=== PATIENT | female | born 2000 | race Caucasian/White ===

== ENCOUNTER 2023-08-14 17:47 | Outpatient (CLI) ==
[~2023-08-14] VITALS: Ht 162.6 cm; Wt 66.3 kg
[2023-08-14 18:07] VITALS: BP 118/80
[2023-08-14 19:16] LABS: APPEARANCE, URINE HAZY (CLEAR); BACTERIA, URINE AUTO NEGATIVE (NEGATIVE); BILIRUBIN, URINE AUTO NEGATIVE (NEGATIVE); BLOOD, URINE BLOOD NEGATIVE (NEGATIVE); COLOR, URINE YELLOW (YELLOW); GLUCOSE, URINE (UA) AUTO NEGATIVE (NEGATIVE); KETONE, URINE AUTO NEGATIVE (NEGATIVE); LEUKOCYTE ESTERASE, URINE AUTO 3+ (NEGATIVE); MUCUS, URINE SMALL (NEGATIVE); NITRITE, URINE AUTO NEGATIVE (NEGATIVE); PROTEIN, URINE AUTO 2+ mg/dL (NEGATIVE); RBC, URINE AUTO 26 /HPF (0-3); SPECIFIC GRAVITY URINE AUTO 1.015 (1.002-1.035); SQUAMOUS EPITHELIAL CELL UR AU 0 /HPF (0-6); UROBILINOGEN, URINE AUTO 0.2 mg/dL (0.0-2.0); WBC, URINE AUTO 174 /HPF (0-3)
[2023-08-14] MEDS ORDERED: MACR100C43 PO (19:25)
[2023-08-14] MEDS ORDERED: NITROFURANTOIN (MACROBID) 100 MG CAP PO ONE (20:00)
== END 2023-08-14 19:45 | disposition home or self-care (01) ==
LOC: M LDO 17:47
PROVIDERS: ATTEND Specialist
DX: O23.42 Unspecified infection of urinary tract in pregnancy, second trimester (principal); Z3A.21 21 weeks gestation of pregnancy
CPT/HCPCS: 59025; 76815; 81001; 87088; 87186; G0463

== ENCOUNTER 2023-10-21 08:08 | Inpatient (IN) | payer OTHER ==
[~2023-10-21] VITALS: Ht 162.6 cm; Wt 77.2 kg
[~2023-10-21 08:08] MED LIST: MACR100C43 PO
[2023-10-21] MEDS ORDERED: LABETALOL 100MG/20ML VIAL As Ordered ONE (08:26)
[2023-10-21] MEDS: MAGNESIUM *L&D* 4GM/100ML BAG (40MG/ML) IV ONE (08:36)
[2023-10-21] MEDS: LABETALOL 100MG/20ML VIAL IV STA (08:37)
[2023-10-21] MEDS ORDERED: MAGNESIUM SULFATE 4% INJ 20GM/500ML (40MG/ML) As Ordered ONE (08:45)
[2023-10-21] MEDS ORDERED: LIDOCAINE 1% MDV 20ML VIAL INFIL PRN (08:45)
[2023-10-21] MEDS ORDERED: OXYTOCIN DRIP 30 UNITS in IV 1 EA IV PRN (08:45)
[2023-10-21] MEDS ORDERED: CARBOPROST TROMETHAMINE 250 MCG/ML AMP IM PRN (08:45)
[2023-10-21] MEDS ORDERED: TRANEXAMIC ACID INJection 1,000 MG in NS 100 ML IV PRN (08:45)
[2023-10-21] MEDS: MAG Sulf (OBGYN) 20GM/500ML 20,000 MG in IV 1 EA IV SCH (09:01)
[2023-10-21 09:04] LABS: HEMATOCRIT 34.6 % (36.0-47.0); HEMOGLOBIN 10.8 g/dl (12.0-15.5); MEAN CORPUSCULAR HEMOGLOBIN 27.4 pg (27.0-33.0); MEAN CORPUSCULAR HGB CONC 31.2 g/dl (32.0-36.5); MEAN CORPUSCULAR VOLUME 87.8 fl (80.0-96.0); PLATELET COUNT, AUTOMATED 107 10^3/uL (150-450); RED BLOOD COUNT 3.94 10^6/uL (4.00-5.40); WHITE BLOOD COUNT 17.4 10^3/uL (4.0-10.0)
[2023-10-21 09:13] LABS: LDH LACTATE DEHYDROGENASE 582 U/L (120-246)
[2023-10-21 09:14] LABS: ALT/SGPT 55 U/L (7.0-40); AST/SGOT 95 U/L (<34); BILIRUBIN,TOTAL 0.3 MG/DL (0.3-1.2); CREATININE FOR GFR 0.86 MG/DL (0.55-1.30); GLOMERULAR FILTRATION RATE > 60.0 (>60)
[2023-10-21] MEDS ORDERED: ONDANSETRON 4MG 2ML VIAL As Ordered ONE (09:21)
[2023-10-21] MEDS ORDERED: ePHEDrine SULFATE 25 MG/5 ML(5MG/ML) SYRINGE As Ordered ONE (09:21)
[2023-10-21] MEDS ORDERED: MORPHINE PRES-FREE INJ 10 MG/10 ML VIAL As Ordered ONE (09:21)
[2023-10-21] MEDS: ceFAZolin SOD 2 GM in IV 1 EA IV ONE (09:24)
[2023-10-21] MEDS: BICITRA 30ML SOLN UDC PO ONE (09:24)
[2023-10-21] MEDS: ONDANSETRON 4MG 2ML VIAL IV ONE (09:36)
[2023-10-21 09:45] LABS: URIC ACID 10.2 MG/DL (3.1-7.8)
[2023-10-21 10:07] LABS: INR 0.98; PARTIAL THROMBOPLASTIN TIME 27.2 SECONDS (24.8-34.2); PROTHROMBIN TIME 12.7 SECONDS (12.5-14.5)
[2023-10-21 10:17] LABS: CORD GAS ABE V -4.9; CORD GAS HCO3 V 22.2 MMOL/L; CORD GAS PCO2 V 48.8 mmHg; CORD GAS PH V 7.276 UNITS; CORD GAS PO2 V 19.3 mmHg; CORD GAS SBC V 19.2 MMOL/L; CORD GAS TCO2 V 23.7 MMOL/L
[2023-10-21 10:18] LABS: CORD GAS ABE A -5.8; CORD GAS HCO3 A 22.2 MMOL/L; CORD GAS O2 SAT A 31.7 %; CORD GAS PCO2 A 52.9 mmHg; CORD GAS PH A 7.24 UNITS; CORD GAS PO2 A 15.4 mmHg; CORD GAS SBC A 18.3 MMOL/L; CORD GAS TCO2 A 23.8 MMOL/L
[2023-10-21] MEDS ORDERED: HYDROMORPHONE HCL 0.5 MG/ 0.5 ML SYRINGE IV PRN (10:30)
[2023-10-21] MEDS ORDERED: MEPERIDINE 25 MG/ML 1ML VIAL IV PRN (10:30)
[2023-10-21] MEDS ORDERED: NALOXONE INJ 0.4MG/1ML VIAL IV PRN ×2 (10:30)
[2023-10-21] MEDS ORDERED: **NOTE PATIENT COMMENT** MISC XX SCH (10:30)
[2023-10-21] MEDS: SLF 3 ML SYR IV SCH (10:30)
[2023-10-21] MEDS ORDERED: diphenhydrAMINE 50MG/ML VIAL IV PRN (10:30)
[2023-10-21] MEDS ORDERED: ONDANSETRON 4MG 2ML VIAL IV PRN ×2 (10:30→10:50)
[2023-10-21] MEDS ORDERED: METOCLOPRAMIDE INJ 10MG/2ML VIAL IV PRN (10:30)
[2023-10-21] MEDS ORDERED: oxyCODONE 5MG TAB PO PRN (10:30)
[2023-10-21] MEDS ORDERED: SIMETHICONE 80MG CHEW TAB PO PRN (10:50)
[2023-10-21] MEDS ORDERED: MOM 30ML SUSPENSION UDC PO PRN (10:50)
[2023-10-21] MEDS ORDERED: RHOGAM 300MCG (1500IU) INJ IM SCH (10:50)
[2023-10-21] MEDS ORDERED: OXYTOCIN DRIP 30 UNITS in IV 1 EA IV SCH (10:55)
[2023-10-21] MEDS ORDERED: fentaNYL 100 MCG/2 ML INJECTION As Ordered ONE (10:55)
[2023-10-21] MEDS: fentaNYL 100 MCG/2 ML INJECTION IV PRN (10:58)
[2023-10-21] MEDS ORDERED: KETOROLAC 30 MG/ML 1ML VIAL As Ordered ONE (11:07)
[2023-10-21] MEDS: KETOROLAC 30 MG/ML 1ML VIAL IV SCH ×2 (11:09→19:23)
[2023-10-21] MEDS: OXYTOCIN DRIP 30 UNITS in IV 1 EA IV SCH (11:10)
[2023-10-21] MEDS: LR 1,000 ML IV SCH (12:00)
[2023-10-21] MEDS ORDERED: VITA100T59 PO (12:04)
[2023-10-21] MEDS ORDERED: PRENTAB9 PO (12:04)
[2023-10-21] MEDS ORDERED: FERR325T3 PO (12:04)
[2023-10-21] MEDS ORDERED: TUMS500C PO (12:04)
[2023-10-21] MEDS ORDERED: NOXI1TAB PO (12:06)
[2023-10-21] MEDS ORDERED: FOLI400T13 PO (12:06)
[2023-10-21] MEDS ORDERED: HOME MED LIST COMPLETE! XX SCH (12:10)
[2023-10-21 13:59] LABS: HEMATOCRIT 27.1 % (36.0-47.0); HEMOGLOBIN 8.9 g/dl (12.0-15.5); MEAN CORPUSCULAR HEMOGLOBIN 28.3 pg (27.0-33.0); MEAN CORPUSCULAR HGB CONC 32.8 g/dl (32.0-36.5); MEAN CORPUSCULAR VOLUME 86.3 fl (80.0-96.0); RED BLOOD COUNT 3.14 10^6/uL (4.00-5.40); WHITE BLOOD COUNT 16.2 10^3/uL (4.0-10.0)
[2023-10-21 14:13] LABS: INR 1.03; PARTIAL THROMBOPLASTIN TIME 29.4 SECONDS (24.8-34.2); PROTHROMBIN TIME 13.2 SECONDS (12.5-14.5)
[2023-10-21 14:15] LABS: LDH LACTATE DEHYDROGENASE 463 U/L (120-246)
[2023-10-21 14:16] LABS: ALT/SGPT 42 U/L (7.0-40); AST/SGOT 66 U/L (<34); BILIRUBIN,TOTAL 0.3 MG/DL (0.3-1.2); CREATININE FOR GFR 0.65 MG/DL (0.55-1.30); GLOMERULAR FILTRATION RATE > 60.0 (>60)
[2023-10-21 14:24] LABS: PLATELET COUNT, AUTOMATED 87 10^3/uL (150-450)
[2023-10-21 19:21] VITALS: BP 127/77
[2023-10-21 20:21] VITALS: BP 122/86
[2023-10-21 20:22] LABS: HEMATOCRIT 22.5 % (36.0-47.0); HEMOGLOBIN 7.3 g/dl (12.0-15.5); MEAN CORPUSCULAR HEMOGLOBIN 28.2 pg (27.0-33.0); MEAN CORPUSCULAR HGB CONC 32.4 g/dl (32.0-36.5); MEAN CORPUSCULAR VOLUME 86.9 fl (80.0-96.0); RED BLOOD COUNT 2.59 10^6/uL (4.00-5.40); WHITE BLOOD COUNT 12.1 10^3/uL (4.0-10.0)
[2023-10-21 20:23] LABS: PLATELET COUNT, AUTOMATED 83 10^3/uL (150-450)
[2023-10-21 20:35] LABS: INR 1.09; PARTIAL THROMBOPLASTIN TIME 29.1 SECONDS (24.8-34.2); PROTHROMBIN TIME 13.8 SECONDS (12.5-14.5)
[2023-10-21 20:45] LABS: URIC ACID 8.8 MG/DL (3.1-7.8)
[2023-10-21 20:48] LABS: ALT/SGPT 33 U/L (7.0-40); AST/SGOT 45 U/L (<34); BILIRUBIN,TOTAL 0.2 MG/DL (0.3-1.2); CREATININE FOR GFR 0.69 MG/DL (0.55-1.30); GLOMERULAR FILTRATION RATE > 60.0 (>60); LDH LACTATE DEHYDROGENASE 359 U/L (120-246)
[2023-10-21] MEDS: DOCUSATE SODIUM 100MG CAPSULE PO SCH (21:00)
[2023-10-21 21:21] VITALS: BP 123/80
[2023-10-21 22:21] VITALS: BP 121/79
[2023-10-21 23:21] VITALS: BP 116/76
[2023-10-22] VITALS (28 sets, daily range): BP systolic 94–153; BP diastolic 55–110; TEMP 97.4–97.6; O2SAT 95–98
[2023-10-22 04:42] LABS: MEAN CORPUSCULAR HEMOGLOBIN 27.4 pg (27.0-33.0); MEAN CORPUSCULAR HGB CONC 31.4 g/dl (32.0-36.5); MEAN CORPUSCULAR VOLUME 87.1 fl (80.0-96.0); RED BLOOD COUNT 2.41 10^6/uL (4.00-5.40); WHITE BLOOD COUNT 9.8 10^3/uL (4.0-10.0)
[2023-10-22 04:47] LABS: PLATELET COUNT, AUTOMATED 98 10^3/uL (150-450)
[2023-10-22 04:48] LABS: HEMOGLOBIN 6.6 g/dl (12.0-15.5)
[2023-10-22 04:54] LABS: INR 1.02; PARTIAL THROMBOPLASTIN TIME 30.5 SECONDS (24.8-34.2); PROTHROMBIN TIME 13.1 SECONDS (12.5-14.5)
[2023-10-22] MEDS: FERROUS SULFATE 325MG TAB PO SCH (08:57)
[2023-10-22] MEDS: PRENATAL VITAMINS CHEWABLE TABLET PO SCH (08:58)
[2023-10-22 10:55] LABS: HEMATOCRIT 29.4 % (36.0-47.0); MEAN CORPUSCULAR HGB CONC 31.6 g/dl (32.0-36.5); MEAN CORPUSCULAR VOLUME 88.6 fl (80.0-96.0); PLATELET COUNT, AUTOMATED 109 10^3/uL (150-450); RED BLOOD COUNT 3.32 10^6/uL (4.00-5.40); WHITE BLOOD COUNT 9.7 10^3/uL (4.0-10.0)
[2023-10-22 11:03] LABS: HEMOGLOBIN 9.3 g/dl (12.0-15.5)
[2023-10-22] MEDS: IBUPROFEN 800 MG TAB PO SCH (16:01)
[2023-10-22] MEDS: PERCOCET 5MG/325MG TAB PO PRN (19:33)
[2023-10-23] VITALS (8 sets, daily range): BP systolic 128–163; BP diastolic 78–102; O2SAT 96–99
[2023-10-23] MEDS: MEASLES,MUMPS,RUBELLA VACCINE INJ (MMR-II) SC.IMMUN ONE (07:20)
[2023-10-23 09:25] LABS: HEMATOCRIT 29.5 % (36.0-47.0); HEMOGLOBIN 9.7 g/dl (12.0-15.5); MEAN CORPUSCULAR HEMOGLOBIN 28.6 pg (27.0-33.0); MEAN CORPUSCULAR HGB CONC 32.9 g/dl (32.0-36.5); PLATELET COUNT, AUTOMATED 135 10^3/uL (150-450); RED BLOOD COUNT 3.39 10^6/uL (4.00-5.40); WHITE BLOOD COUNT 9.9 10^3/uL (4.0-10.0)
[2023-10-23] MEDS: PERCOCET 5MG/325MG TAB PO PRN (13:39)
[2023-10-23] MEDS: BOOSTRIX VACCINE (TETANUS/DIPHTH/ACEL. PERTUSSIS) 0.5ML SYR IM.IMMUN ONE (13:39)
[2023-10-24 02:00] VITALS: BP 144/96; O2SAT 98
[2023-10-24 06:00] VITALS: BP 131/95; O2SAT 97
[2023-10-24] MEDS ORDERED: COLA100C5 PO (08:55)
[2023-10-24] MEDS ORDERED: IBUP80TA PO (08:55)
[2023-10-24 10:00] VITALS: BP 144/98; O2SAT 98
[2023-10-24] MEDS ORDERED: LABE200T5 PO (11:52)
[2023-10-24 11:59] VITALS: BP 142/94
[2023-10-24] MEDS: LABETALOL 200 MG TAB PO ONE (11:59)
[2023-10-24 14:00] VITALS: BP 122/90; O2SAT 98
[2023-10-24 16:00] VITALS: BP 132/96
== END 2023-10-24 17:10 | disposition home or self-care (01) | DRG 773 ==
LOC: M LDO 08:08 → M LDI 08:32 → M OBS 10-22 15:34
PROVIDERS: ADMIT Advanced Practice Midwife; ATTEND Obstetrics & Gynecology
PROC: 30233N1 Transfusion of Nonautologous Red Blood Cells into Peripheral Vein, Percutaneous Approach (ICD-10-PCS; 2023-10-21)
PROC: 10D00Z1 Extraction of Products of Conception, Low, Open Approach (ICD-10-PCS; principal; 2023-10-21 09:30)
DX: O14.24 HELLP syndrome, complicating childbirth (principal); Z3A.31 31 weeks gestation of pregnancy; O32.1XX0 Maternal care for breech presentation, not applicable or unspecified; Z37.0 Single live birth; O99.02 Anemia complicating childbirth; D64.9 Anemia, unspecified; Z79.899 Other long term (current) drug therapy